=== PATIENT | male | born 1955 | race Caucasian/White ===

== ENCOUNTER 2017-01-12 22:05 | Emergency (ER) | payer BC ==
[~2017-01-12] VITALS: Ht 177.8 cm; Wt 90.0 kg
[~2017-01-12 22:05] MED LIST: ASPI81 PO; CLOP75 PO; LIPI40TA PO; NITR0.4S SL; SYNT25TA PO; TOPR25TA2 PO
[2017-01-12 22:06] VITALS: BP 138/80; PULSE 59; RESP 16; TEMP 97.7; O2SAT 99
[2017-01-12] MEDS ORDERED: ASPI-110 PO (22:34)
[2017-01-12] MEDS ORDERED: [UNRECOGNIZED DRUG - CODE] PO (22:34)
[2017-01-12] MEDS ORDERED: LEVO200T4 PO (22:34)
[2017-01-12] MEDS ORDERED: METO100T9 PO (22:34)
[2017-01-12] MEDS ORDERED: ATOR40TA16 PO (22:34)
[2017-01-12] MEDS ORDERED: PROPARACAINE HCL 0.5% OPHT SOLN 15 ML BTL EACH EYE ONE (23:00)
[2017-01-12] MEDS ORDERED: TOBRAMYCIN/DEXAMETHASONE OPTH OINT 3.5 GM TUBE EACH EYE ONE (23:15)
[2017-01-12] MEDS ORDERED: oxyCODONE/ACETAMINOPHEN 5 MG/325 MG TAB PO ONE (23:15)
[2017-01-12] MEDS ORDERED: TETANUS/DIPHTHERIA TOXOID ADULT 0.5 ML VIAL IM ONE (23:15)
[2017-01-12] MEDS ORDERED: PERC5TAB12 PO (23:16)
[2017-01-12] MEDS ORDERED: TOBR.3%O LEFT EYE (23:16)
--- NOTE | 2017-01-12 23:18 | PD ---
HPI Chief Complaint: Foreign Body Time Seen by Provider: 23:18 Travel History International Travel<30 days: No Contact w/Intl Traveler<30days: No Traveled to known affect area: No History of Present Illness HPI 61-year-old white male presents to emergency department with complains of foreign body sensation in his left eye. He states that he was using a drama yesterday but does not recall getting anything in his eye. He states that today he noticed foreign-body sensation with tearing, mucous, redness and mild discomfort. He states that he has poor vision in his left eye due to cataracts. He does not feel that his vision is much affected. He denies any recent illness. He has not had a tetanus shot over 5 years. He denies any matting in the morning. No itching or burning. No diplopia. PFSH Past Medical History Narrative Medical Hypercholesterolemia, hypothyroidism, hypertension Anemia: Yes Blood Disorders: No Cancer: No Cardiovascular Problems: No Diabetes: No Endocrine: Yes Gastrointestinal Disorders: No Genitourinary: No Hypertension: Yes Immune Disorder: No Implanted Vascular Access Dvce: No Musculoskeletal: No Neurologic: No Psychiatric: No Reproductive: No Respiratory: No Thyroid Disease: Yes Tetanus Vaccination: > 5 Years ?: Not Past Surgical History Cardiac Surgery: Yes (STENT ) Other Surgery: Yes (CATARACT SURGERY ) Social History Alcohol Use: No Tobacco Use: No Substance Use: No Allergies-Medications (Allergen,Severity, Reaction): Coded Allergies: No Known Allergies (Unverified , 01/12/17) Reported Meds & Prescriptions Reported Meds & Active Scripts Active Tobrex Opth Oint (Tobramycin Sulfate) 0.3 % Oint 1 Applic LEFT EYE QID Percocet (Oxycodone-Acetaminophen) 5-325 mg Tab 1 Tab PO Q4H PRN Reported Aspirin 81 (Aspirin) 81 Mg Tabdr 81 Mg PO DAILY Levothyroxine (Levothyroxine Sodium) 200 Mcg Tab 275 Mcg PO DAILY Metoprolol Succinate ER 24 HR (Metoprolol Succinate) 100 Mg Tab 100 Mg PO DAILY Atorvastatin (Atorvastatin Calcium) 40 Mg Tab 40 Mg PO HS Review of Systems Except as stated in HPI: all other systems reviewed are Neg General / Constitutional: No: Fever, Chills Eyes: Positive: Blurred Vision, Drainage, Redness, Foreign Body Sensation, Pain , Tearing, Visual changes, No: Diploplia, Photophobia HENT: No: Headaches, Neck Stiffness Physical Exam Narrative GENERAL: Well-developed, well-nourished in no acute distress. Nontoxic appearing. HEAD: Normocephalic, atraumatic. EYES: Pupils equal round and reactive. Extraocular motions intact. No scleral icterus. No injection or drainage in the right eye. The left eye is injected. There is a mucoid drainage. There is an obvious foreign body seen over the sclera on the cornea at the 7:00 hour. This is outside the visual field. Ophthaine is instilled in the left eye. The lids are flipped and no foreign bodies seen under the lids. ENT: TMs clear without erythema. The external auditory canals clear. Nose: clear . Posterior pharynx is pink and moist. No tonsillar edema or exudate. Uvula midline. Airway patent. NECK: Trachea midline.Supple, nontender, moves head freely. No central bony tenderness or spasm. CARDIOVASCULAR: Regular rate and rhythm without murmurs, gallops, or rubs. RESPIRATORY: Clear to auscultation. Breath sounds equal bilaterally. No wheezes , rales, or rhonchi. GASTROINTESTINAL: Abdomen soft, non-tender, nondistended. No hepato-splenomegaly , or palpable masses. No guarding. EXTREMITIES: No clubbing, cyanosis, or edema. No joint tenderness, effusion, or edema noted. BACK: Nontender without deformity or crepitance. No flank tenderness. Data Data Last Documented VS Vital Signs Date Time Temp Pulse Resp B/P Pulse Ox O2 Delivery O2 Flow Rate FiO2 01/12/17 22:06 97.7 59 16 138/80 99 Room Air Orders Proparacaine 0.5% Opth Soln (Alcaine 0.5 (01/12/17 23:00) Oxycodone-Acetamin 5-325 Mg (Percocet (01/12/17 23:15) Tetanus/Diphtheria Tox Adult (Tetanus/Di (01/12/17 23:15) Tobramycin-Dexameth Opth Oint (Tobradex (01/12/17 23:15) MDM Medical Decision Making Medical Screen Exam Complete: Yes Emergency Medical Condition: Yes Medical Record Reviewed: Yes Differential Diagnosis MDM: High Differential diagnoses: Acute conjunctivitis (bacterial, viral, allergic, traumatic), glaucoma, iritis, traumatic globe injury, foreign body, corneal abrasion, corneal ulcer, diabetic retinopathy, photokeratitis, herpes keratitis , CMV retinitis Narrative Course Patient's tetanus status updated. He is given Percocet 5 mg by mouth. Tobramycin ophthalmic ointment to the left eye. Visual acuity noted in the nursing chart. Procedures Procedure Narrative Foreign body removal left eye: 2 drops of Alcaine is instilled in left eye. Attempts at removal of the foreign body are unsuccessful using a cotton tip applicator. The foreign body is removed using a 18-gauge needle. After removal of the foreign body rust ring is noted. The 18-gauge needles once again used to remove the rust ring. Fluorescein reveals deficit from the foreign body and removal of the rust ring. Patient's tetanus status updated. He is given Percocet 5 a grams by mouth and tobramycin ointment is instilled in left eye. Patient tolerates procedure well. No complications. Diagnosis Primary Impression: foreign body removal left eye with rust ring removal Patient Instructions: General Instructions, Narcotic given in the ED Additional Instructions: Rest. Cold compresses. Tobramycin ophthalmic ointment one ribbon to the left eye 4 times daily. Percocet for pain. Followup with an eye doctor in the morning. Follow-up with a medical doctor one week. Return to the ER if any problems. Med/Other Pt SpecificInfo: Prescription(s) given Scripts Tobramycin Opth Oint (Tobrex Opth Oint)0.3 % Oint1 Applic LEFT EYE QID #1 TUBE Ref 0 Prov:Flori Villagomez MD 01/12/17 Oxycodone-Acetaminophen (Percocet)5-325 mg Tab1 Tab PO Q4H PRN (PAIN) #6 TAB Ref 0 Prov:Flori Villagomez MD 01/12/17 Disposition: 01 DISCHARGE HOME Condition: Stable Thomas Tellez January 12, 2017 23:18
== END 2017-01-12 23:59 | disposition home or self-care (01) ==
LOC: NEPD 22:05
DX: T15.02XA Foreign body in cornea, left eye, initial encounter (principal); I10 Essential (primary) hypertension; E03.9 Hypothyroidism, unspecified; E78.00 Pure hypercholesterolemia, unspecified; Z23 Encounter for immunization; Z86.2 Personal history of diseases of the blood and blood-forming organs and certain disorders involving the immune mechanism; X58.XXXA Exposure to other specified factors, initial encounter
CPT/HCPCS: 65220; 90471; 90714